=== PATIENT | male | born 1965 | race African-American/Black ===

== ENCOUNTER 2016-10-29 02:34 | Observation (INO) | payer OTHER ==
--- NOTE | ~2016-10-29 | HP ---
History And Physical [place] [address] [facility] [place]. [address] NAME: GREGORIA GUY : 67 STATUS : ADM Elle PAT#: [id number] AGE: 51 ADM/REG DATE : 10/29/16 MR#: [id number] REPORT SERV DATE: 10/29/16 DICTATED BY: TERRY SAAVEDRA DATE: 10/29/16 REPORT STATUS : Draft TRANSCRIBED BY: MODDenis DATE: 10/29/16 DATE OF ADMISSION: 10/29/2016 FITTINGS FINISHER: Dr. Nico Myles at [facility]. CHIEF COMPLAINT: Chest pain with typical and atypical features, some similar to previous cardiac event. HISTORY OF PRESENT ILLNESS: A very pleasant 51-year-old black gentleman with a known history of CAD status post four ARMINDA to mid RCA in 2011 with identified 95% LAD lesion at the apex which was not intervened on. The patient states that over the last several days, he has experienced episodic chest pain primarily in his mid to left chest radiating into his left neck and left shoulder. His discomfort increased in intensity last evening around 2300 hours, he felt it prudent to come to the emergency room. At its most intense, he rates the chest pain a 10/10. At the time of interview in the [facility], he states it is a 2/10 with some residual soreness. He reports associated shortness of breath, nausea, diaphoresis, and dizziness. Denies any belching. The episode lasted approximately two hours in duration. It was improved after the application of nitro paste in the ED. He did take aspirin and a half of an amlodipine prior to arrival. He states he does not have nitroglycerin sublingual available to him. The patient denies any personal history of myocardial infarction, stroke, DVT, or pulmonary embolus. The patient denies any recent fever or chills, no palpitations, no syncopal episodes. Denies PND or orthopnea. Of note, the patient reports chronic left shoulder and left hip discomfort, recently underwent x-rays and workup at the [facility] with planned referral to [place] or [place] for followup. PAST MEDICAL HISTORY: 1. CAD status post four ARMINDA to mid RCA and 95% LAD lesion at the apex in 2011. 2. Hypertension. 3. Dyslipidemia. 4. Asthma. 5. Denies diabetes. 6. Former tobacco abuse. 7. Positive family history for early CAD. 8. [facility] PAST SURGICAL HISTORY: None. SOCIAL HISTORY: He is single, has four children, unemployed, does not have an exercise routine, but is active. Quit smoking in 2012. Prior to that was one-pack per week for 30 years. Occasionally consumes alcohol. Occasionally smokes marijuana, most recently on Father's Day. History And Physical [address] [address] NAME: GREGORIA GUY : 67 STATUS : ADM Elle PAT#: [id number] AGE: 51 ADM/REG DATE : 10/29/16 MR#: [id number] REPORT SERV DATE: 10/29/16 DICTATED BY: TERRY SAAVEDRA DATE: 10/29/16 REPORT STATUS : Draft TRANSCRIBED BY: JA DATE: 10/29/16 FAMILY HISTORY: Father at 43 of a questionable stroke. Mother at 27 of a heart attack. Sister with CAD and stents, TIA, alive at 54. Sister with hypertension, alive at 52. The patient is one of four siblings. REVIEW OF SYSTEMS: A 14-point review of systems performed, significant for HPI including a stress test approximately one year ago in [place], negative per the patient's report. Otherwise, complete review of systems was obtained and negative. ALLERGIES: SEPTRA, SWELLING AND ITCHING. HOME MEDICATIONS: Amlodipine 5 mg twice daily, Issa aspirin 325 daily, atorvastatin 10 mg daily, chlorthalidone 12.5 mg daily, lisinopril 40 mg daily, and albuterol and Ventolin Rescue inhaler p.r.n. PHYSICAL EXAMINATION: BLOOD PRESSURE: Bilateral blood pressures on arrival, right 147/97, left 142/97. PULSE: 67, RESPIRATORY RATE: 14, TEMPERATURE: 98, O2 saturation 97% on room air. HEIGHT: 6 feet 0 inches. WEIGHT: 250 pounds. BMI of 34. GENERAL: Cooperative, in no apparent distress. HEENT: Pupils 2 mm, sclera nonicteric. Nares patent. Moist mucous membranes. No xanthelasma. NECK: Trachea midline, no thyromegaly. No JVD. No bruits. LYMPH: No cervical lymphadenopathy. No supraclavicular lymphadenopathy. RESPIRATORY: Unlabored respirations. Breath sounds clear bilaterally to posterior auscultation. No wheezes or rhonchi. CARDIOVASCULAR: Regular rate. No murmur, rub or gallop appreciated. EXTREMITIES: Without edema. Pulses 2+ bilaterally. ABDOMEN: Soft, nontender, nondistended, normal bowel sounds auscultated throughout. No organomegaly. SKIN: Warm, dry extremities. No pallor, or cyanosis. PSYCHIATRIC: Appropriate affect. Alert, oriented x3. LABORATORY DATA: Troponin less than 0.02 twice. Potassium 3.8, BUN 16, creatinine 1.14, glucose 88, and magnesium 2.2. WBC 8.9, hemoglobin 13.0, hematocrit 39.1, and platelet count 210,000. EKG; sinus rhythm. PCI, 2012 ([facility]): Four ARMINDA to mid RCA with 95% LAD lesion at apex, not intervened on. ASSESSMENT AND PLAN: 1. Substernal chest pain with typical and atypical features some similar to previous. The patient has been observed in the [facility]. Two sets of cardiac markers are negative. EKG is stable. N.p.o. for MPI today. Home if negative study. If anything suggestive of ischemia, Cardiology referral will be initiated. Otherwise, the patient will be asked to follow up with the PCP and Dr. Joseph at [facility] as appropriate. 2. Coronary artery disease. Continue home medications. 3. Hypertension. Monitor blood pressure and continue home medications. History And Physical [address] [address] NAME: GREGORIA GUY : 67 STATUS : ADM Elle PAT#: [id number] AGE: 51 ADM/REG DATE : 10/29/16 MR#: [id number] REPORT SERV DATE: 10/29/16 DICTATED BY: TERRY SAAVEDRA DATE: 10/29/16 REPORT STATUS : Draft TRANSCRIBED BY: JA DATE: 10/29/16 4. Dyslipidemia. Continue statin. 5. No nitroglycerin available. Script will be provided at discharge. Educated on use and storage at bedside. SAGAR/JA KE Shaw, [facility] / [id number] CC: KE Shaw, [facility] Quinton Joseph M.D. Nico Myles M.D.
[~2016-10-29 02:34] MED LIST: ACET500CAP PO; HYDROCHLOROT12.5 MG PO; NAP375 PO; NORV10 PO; PRIN20 PO; SPIRIVA INH
[2016-10-29 02:37] LABS: BASOPHILS 0.6 %; BASOPHILS ABSOLUTE 0.05 10/3/uL (0.0-0.16); EOSINOPHILS 2.3 %; ER CBC TAT 0 Hrs 00 Mins; HEMATOCRIT 39.1 % (40.0-51.0); IMMATURE GRANULOCYTES 0.3 %; IMMATURE GRANULOCYTES ABSOLUTE 0.03 10/3/uL (0.0-0.11); LYMPHOCYTES ABSOLUTE 3.81 10/3/uL (0.67-4.30); MEAN CORPUS HGB CONC 33.2 g/dL (32.0-36.0); MEAN CORPUSCULAR HEMOGLOB 29.1 pg (26.0-34.0); MEAN CORPUSCULAR VOLUME 87.5 fL (80-100); MEAN PLATELET VOLUME 10.9 fL (9.2-13.0); MONOCYTES 8.1 %; MONOCYTES ABSOLUTE 0.72 10/3/uL (0.21-1.20); NEUTROPHILS 45.7 %; NEUTROPHILS ABSOLUTE 4.06 10/3/uL (2.02-8.40); PLATELET COUNT 210 10/3/uL (150-400); RBC DISTRIBUTION WIDTH 14.2 % (12.0-16.0); RED CELL COUNT 4.47 10/6/uL (4.7-6.1); WHITE BLOOD CELLS 8.9 10/3/uL (4.5-10.5)
[2016-10-29 02:38] LABS: MANUAL DIFF NO %
[2016-10-29 02:47] LABS: PARTIAL THROMBO TIME 29.2 SEC (22.5-37.2); PROTIME (NOT ORD) 12.7 SEC (12.0-14.5)
[2016-10-29 02:56] LABS: BUN (BLOOD UREA NITROGEN) 16 MG/DL (6-23); CALCIUM, SERUM 9.1 MG/DL (8.5-10.4); CHEST PAIN PROFILE TAT 0 Hrs 00 Mins; CHLORIDE, SERUM 106 MMOL/L (96-112); CO2 (CARBON DIOXIDE) 27 MMOL/L (24-34); CREATININE 1.14 MG/DL (0.70-1.30); GFR AFRICAN AMERICAN 86 ML/MIN (>=60); GFR NON AFRICAN AMERICAN 75 ML/MIN (>=60); GLUCOSE, SERUM 88 MG/DL (60-99); POTASSIUM, SERUM 3.8 MMOL/L (3.5-5.3); SODIUM, SERUM 141 MMOL/L (135-148); TROPONIN I <0.02 NG/ML (<0.05)
[2016-10-29] MEDS ORDERED: LISINOPRIL40 MG PO (04:05)
[2016-10-29] MEDS ORDERED: ASABAYER PO (04:06)
[2016-10-29] MEDS ORDERED: NORV5 PO (04:06)
[2016-10-29] MEDS ORDERED: LIPITOR10 PO (04:07)
[2016-10-29] MEDS ORDERED: HYGROTON 25 MG25 MG PO (04:07)
[2016-10-29] MEDS ORDERED: NITROSTAT0.4 MG SL (14:51)
== END 2016-10-29 15:10 | disposition home or self-care (01) ==
LOC: ER 02:34 → CDU1 03:18
PROVIDERS: Specialist
DX: R07.89 Other chest pain (principal); I10 Essential (primary) hypertension; E78.5 Hyperlipidemia, unspecified; J45.909 Unspecified asthma, uncomplicated; I25.10 Atherosclerotic heart disease of native coronary artery without angina pectoris; E11.9 Type 2 diabetes mellitus without complications; Z87.891 Personal history of nicotine dependence; Z82.49 Family history of ischemic heart disease and other diseases of the circulatory system; Z88.1 Allergy status to other antibiotic agents; Z79.82 Long term (current) use of aspirin; Z79.899 Other long term (current) drug therapy
CPT/HCPCS: 71010; 78452; 80048; 83735; 84484; 85025; 85610; 85730; 93005; 93017; 99285; A9270-GY; A9502; G0378